=== PATIENT | female | born 1955 | race Two or more races ===

== ENCOUNTER 2022-07-22 17:55 | Inpatient (IN) | payer MEDICARE, OTHER ==
[~2022-07-22] VITALS: Ht 165.1 cm; Wt 63.5 kg
--- NOTE | 2022-07-22 18:10 | NUR ---
67 yrs famil raisa c/o elevated bp 210/89 in jonathan
--- NOTE | 2022-07-22 18:30 | NUR ---
INSERTED ANGO CATHETER G 18 BLOOD DROW AND SENT TO LAB
--- NOTE | 2022-07-22 18:51 | NUR ---
CXRAY DONE AT BED SIDE
--- NOTE | 2022-07-22 18:55 | NUR ---
UA SENT TO LAB
--- NOTE | 2022-07-22 19:00 | NUR ---
TO CT SCAN OF HEAD
[2022-07-22 19:03] LABS: BASOPHILS # (AUTO) 0.1 K/uL (0.0-0.2); BASOPHILS % (AUTO) 0.8 % (0.0-2.0); HEMATOCRIT 38 % (33-45); HEMOGLOBIN 12.5 g/dL (11.5-14.8); LYMPHOCYTES # (AUTO) 1.8 K/uL (0.8-4.8); LYMPHOCYTES % (AUTO) 27.4 % (20.0-44.0); MEAN CORPUSCULAR HGB CONC 33 g/dl (31.0-36.0); MEAN CORPUSCULAR VOLUME 83 fL (82-100); MONOCYTES # (AUTO) 0.5 K/uL (0.1-1.30); MONOCYTES % (AUTO) 6.9 % (2.0-12.0); NEUTROPHILS # (AUTO) 4.2 K/uL (1.8-8.9); NEUTROPHILS % (AUTO) 63.9 % (43.0-81.0); PLATELET COUNT (AUTO) 303 K/uL (150-450); RED BLOOD CELL COUNT(AUTO) 4.55 MIL/uL (4.0-5.2); WHITE BLOOD COUNT (AUTO) 6.5 K/uL (4.3-11.0)
[2022-07-22 19:19] LABS: CALCIUM, SERUM 9.6 mg/dL (8.5-10.1); CARBON DIOXIDE 27 mmol/L (21-32); CHLORIDE 105 mmol/L (98-107); CREATININE 1.3 mg/dL (0.6-1.3); GLUCOSE 111 mg/dL (74-106); POTASSIUM 4.1 mmol/L (3.5-5.1); SODIUM SERUM 141 mmol/L (136-145); UREA NITROGEN, BLOOD 36 mg/dL (7-18)
--- NOTE | 2022-07-22 19:20 | NUR ---
HAND OFF [facility] RENTERIA
--- NOTE | 2022-07-22 19:26 | NUR ---
Patietn out for imaging study.
[2022-07-22 19:33] LABS: MAGNESIUM 2.3 mg/dL (1.8-2.4)
[2022-07-22] MEDS ORDERED: hydrALAZINE HCL IV 20 MG VIAL IV ONE (20:00)
--- NOTE | 2022-07-22 21:41 | NUR ---
Report given to Candy RENTERIA, patient may go to room 313-2.
[2022-07-22 21:49] LABS: MAGNESIUM 2.3 mg/dL (1.8-2.4); PHOSPHORUS 4.2 mg/dL (2.5-4.9)
[2022-07-22 22:00] VITALS: BP 156/68
[2022-07-22] MEDS: ENOXAPARIN SODIUM 40 MG/0.4 ML DISP.SYRIN SQ SCH ×2 (22:00→22:54)
[2022-07-22] MEDS ORDERED: ACETAMINOPHEN 325 MG TABLET PO PRN (22:00)
[2022-07-22] MEDS ORDERED: ONDANSETRON HCL/PF 4 MG/2 ML VIAL IVP PRN (22:00)
--- NOTE | 2022-07-22 22:00 | NUR ---
HOSPICE VOLUNTEER ADMISSION NOTES ADMITTED AT 67 YEAR OLD FEMALE UNDER THE SERVICE OF DR. ELDER WITH ADMITTING DIAGNOSIS OF R/O ACS. CAME FROM ER VIA GURNEY PATIENT IS AMBULATORY WITH STEADY GAIT. TRANSFERRED TO BED SAFELY AND SECURED, SKIN ASSESSMENT DONE AND RECORDED PATIENT IS INTACT, WITH IV ACCESS AT RAC #18G PATENT AND INTACT. NO COMPLAIN OF PAIN OR DISCOMFORT AT THIS TIME. HISTORY TAKEN AND RECORDED, ALL ATTENDING PHYSICIAN INFORMED RE. ADMISSION, ALL ADMISSION ORDERS DONE AND CARRIED OUT. PATIENT ORIENTATION TO THE UNIT DONE. KEPT BED ON MODERATE HIGH BACK REST POSITION, KPET SIDE RAILS UP X 2 ALL THE TIME, KEPT CALL LIGHT WITHIN AT REACH. WILL CONTINUE TO MONITOR.
--- NOTE | 2022-07-22 22:30 | NUR ---
FITNESS/WELLNESS DIRECTOR NOTES PATIENT REFUSED ENOXAPARIN MEDICATION DESPITE OF EXPLANATION OF RISK AND BENEFITS, WILL CONTINUE TO MONITOR.
[2022-07-22] MEDS: ASPIRIN 81 MG TAB.CHEW PO SCH (22:53)
[2022-07-23] VITALS: BP 144/58
[2022-07-23 04:00] VITALS: BP 147/61
--- NOTE | 2022-07-23 06:24 | NUR ---
RN CLOSING NOTES PATIENT IS IN BED, A/O X 4 [place] SPEAKING, ON ROOM AIR SATURATING WELL NO /SOB NOTED AT THIS TIME, PATIENT IS AMBULATORY WITH ASSISTANCE, WITH IV AT RAC #18G PATENT AND INTACT ATTACHED TO TELE MONITORING DEVICE. NO PAIN OR CHEST PAIN NOTED AT THIS TIME. ALL DUE MEDICATIONS GIVEN, ALL NEEDS ATTENDED. PM CARE RENDERED. KEPT BED ON LOWER LOCKED POSITION, KEPT SIDE RAIL UP X 2 ALL THE TIME, KEPT PATIENT WARM AND COMFORTABLE. KEPT CALL LIGHT WITHIN AT REACH. WILL ENDORSED TO NEXT SHIFT FOR VELIA.
[2022-07-23 06:43] LABS: BASOPHILS % (AUTO) 0.6 % (0.0-2.0); EOSINOPHILS % (AUTO) 0.5 % (0.0-6.0); HEMATOCRIT 34 % (33-45); HEMOGLOBIN 11.3 g/dL (11.5-14.8); LYMPHOCYTES # (AUTO) 1.5 K/uL (0.8-4.8); LYMPHOCYTES % (AUTO) 21.4 % (20.0-44.0); MEAN CORPUSCULAR HGB CONC 33 g/dl (31.0-36.0); MEAN CORPUSCULAR VOLUME 82 fL (82-100); MONOCYTES # (AUTO) 0.4 K/uL (0.1-1.30); MONOCYTES % (AUTO) 5.9 % (2.0-12.0); NEUTROPHILS % (AUTO) 71.6 % (43.0-81.0); PLATELET COUNT (AUTO) 280 K/uL (150-450); RED BLOOD CELL COUNT(AUTO) 4.14 MIL/uL (4.0-5.2)
[2022-07-23 07:26] LABS: ALBUMIN 2.9 g/dL (3.4-5.0); BILIRUBIN,TOTAL 0.4 mg/dL (0.2-1.0); CALCIUM, SERUM 9.4 mg/dL (8.5-10.1); CREATININE 1.3 mg/dL (0.6-1.3); MAGNESIUM 2.3 mg/dL (1.8-2.4); POTASSIUM 4.4 mmol/L (3.5-5.1); TOTAL PROTEIN, SERUM 6.7 g/dL (6.4-8.2)
[2022-07-23 07:30] VITALS: BP 174/81
--- NOTE | 2022-07-23 07:30 | NUR ---
CRITICAL LAB CRITICAL LAB REPORTED TROPONIN 375. REPORTED TO DR. CHAYA DOOLEY. NO NEW ORDERS AT THIS TIME.
--- NOTE | 2022-07-23 07:34 | NUR ---
OPENING NOTE PATIENT RECEIVED AWAKE A/Ox4 SINHALA/NEPALI SPEAKING. ABLE TO MAKE NEED KNOWN. NO S/S OF SOB OR DISTRESS. IV ACCESS ON RAC G18-SL. PATIENT COMPLAINTS OF HEADACHE, REFUSED MEDICATION REGIME AT THIS TIME. SHE'LL EAT BREAKFAST FIRST. SKIN INTACT AND AMBULATORY. FALL AND SAFETY PRECAUTION IN MAINTAINED: BED LOCKED AND AT THE LOWEST POSITION, SRx2, CALL LIGHT WITHIN REACH.
[2022-07-23] MEDS ORDERED: hydrALAZINE HCL 50 MG TABLET PO ONE (08:30)
[2022-07-23] MEDS ORDERED: ATORVASTATIN 10 MG TABLET PO SCH (09:00)
[2022-07-23] MEDS ORDERED: LOSARTAN POTASSIUM 50 MG TABLET PO SCH (09:00)
[2022-07-23] MEDS ORDERED: METOPROLOL TARTRATE 50 MG TABLET PO SCH (09:00)
[2022-07-23] MEDS ORDERED: ENOXAPARIN SODIUM 60 MG/0.6 ML DISP.SYRIN SQ SCH (09:00)
[2022-07-23] MEDS: GLIMEPIRIDE 4 MG TABLET PO SCH ×2 (09:13→17:00)
[2022-07-23] MEDS: ASPIRIN 81 MG TAB.CHEW PO SCH (09:15)
--- NOTE | 2022-07-23 09:16 | NUR ---
MEDICATION NOTE HELD ROUTINE BP MEDICATION. DR. LARKIN HAD PLACE A ONCE TIME ORDER FOR HYDRALAZINE. PT HAD CT ORDERED, MONITORING BP PRIOR TO PROCEDURE.
[2022-07-23] MEDS ORDERED: IOHEXOL-350 100 ML VIAL IV ONE (09:19)
[2022-07-23] MEDS ORDERED: NITROGLYCERIN 0.4 MG/TAB BOTTLE ONE (09:19)
[2022-07-23] MEDS ORDERED: CT SWABBABLE VALVE TRANS SET 1 EA INFUS.SET MC ONE (09:20)
[2022-07-23] MEDS ORDERED: IV NS 0.9% 250 ML IV ONE (09:20)
[2022-07-23] MEDS ORDERED: METOPROLOL TARTRATE INJ 5 MG/5 ML AMPUL ONE ×3 (09:20→09:54)
[2022-07-23] MEDS: METOPROLOL TARTRATE INJ 5 MG/5 ML AMPUL IVP PRN ×10 (09:35→10:20)
[2022-07-23] MEDS ORDERED: NITROGLYCERIN 0.4 MG/TAB BOTTLE SL ONE (10:00)
[2022-07-23] MEDS ORDERED: GLIM4TAB PO (10:05)
[2022-07-23] MEDS ORDERED: HYDR-4076 PO (10:05)
[2022-07-23] MEDS ORDERED: METO50TA16 PO (10:05)
[2022-07-23] MEDS ORDERED: ATOR40TA PO (10:05)
[2022-07-23] MEDS ORDERED: OLME40TA12 PO (10:05)
[2022-07-23] MEDS ORDERED: ASPI-1169 PO (10:05)
[2022-07-23] MEDS ORDERED: AMLO5TAB4 PO (10:05)
--- NOTE | 2022-07-23 10:21 | NUR ---
RN NOTES TOTAL OF 50MG METROPOLOL GIVEN VIA [facility] PROTOCOL. PT HEART 63 BPM AND BP OF 127/54. EMERGENCY GENERATOR MECHANIC AWARE.
[2022-07-23 11:30] VITALS: BP 151/70
--- NOTE | 2022-07-23 12:46 | NUR ---
CRITICAL LAB CRITICAL LAB REPORTED TROPONIN 456. REPORTED TO DR. CHAYA DOOLEY. NO NEW ORDERS AT THIS TIME.
[2022-07-23 15:30] VITALS: BP 158/70
--- NOTE | 2022-07-23 17:44 | NUR ---
DISCHARGE NOTE PATIENT DISCHARGE IN STABLE MEDICAL CONDITION. A/Ox4. IV ACCESS REMOVED WITH CATHETER TIP INTACT, PRESSURE DRESSING WAS APPLIED. NO S/S OF ACTIVE BLEEDING. EXTERNAL MONITOR WAS REMOVED AND RETURNED TO TELE DESK. SKIN ASSESSMENT DONE: SKIN REMAINS INTACT. ALL BELONGING CHECK AND BELONGING LIST SIGNED. HEALTH TEACHING AND DISCHARGE INSTRUCTION GIVEN AND VERBALIZED UNDERSTANDING. PATIENT LEFT UNIT AMBULATING ACCOMPANIED BY SON AND GRANTS MANAGER, WITH NO S/S OF SOB OR DISTRESS. CHARGE NURSE MADE AWARE.
== END 2022-07-23 17:51 | disposition home or self-care (01) | DRG 282 ==
LOC: ER 18:09 → TELE 21:30
PROVIDERS: ADMIT Nurse Practitioner Acute Care; ATTEND Nurse Practitioner Acute Care
DX: I16.0 Hypertensive urgency (principal); I21.A1 Myocardial infarction type 2; I10 Essential (primary) hypertension; E11.40 Type 2 diabetes mellitus with diabetic neuropathy, unspecified; I25.10 Atherosclerotic heart disease of native coronary artery without angina pectoris; J45.909 Unspecified asthma, uncomplicated; Z88.0 Allergy status to penicillin; Z95.5 Presence of coronary angioplasty implant and graft; Z79.84 Long term (current) use of oral hypoglycemic drugs
CPT/HCPCS: 36415; 70450-TC; 71045-TC; 75574; 80048-TC; 80053-TC; 80061-TC; 82962-TC; 83735-TC; 83880; 84100-TC; 84484-TC; 85025-TC; 85730-TC; 87081-TC; 93307-TC; G0378; J1650; J3490; J7050; Q9967

== ENCOUNTER 2022-10-18 07:39 | Inpatient (IN) | payer MEDICARE, OTHER ==
[~2022-10-18] VITALS: Ht 162.6 cm; Wt 63.5 kg
[~2022-10-18 07:39] MED LIST: AMLO5TAB4 PO; ASPI-1169 PO; ATOR40TA PO; GLIM4TAB PO; HYDR-4076 PO; METO50TA16 PO; OLME40TA12 PO
[2022-10-18] MEDS ORDERED: IV NS 0.9% 500 ML BAG IV ONE ×2 (08:00→09:00)
[2022-10-18 08:12] LABS: BASOPHILS % (AUTO) 0.7 % (0.0-2.0); EOSINOPHILS % (AUTO) 0.5 % (0.0-6.0); HEMATOCRIT 39 % (33-45); HEMOGLOBIN 12.7 g/dL (11.5-14.8); LYMPHOCYTES # (AUTO) 1.1 K/uL (0.8-4.8); LYMPHOCYTES % (AUTO) 20.4 % (20.0-44.0); MEAN CORPUSCULAR HEMOGLOBIN 27 PG (26.0-33.0); MEAN CORPUSCULAR HGB CONC 33 g/dl (31.0-36.0); MEAN CORPUSCULAR VOLUME 83 fL (82-100); MONOCYTES # (AUTO) 0.4 K/uL (0.1-1.30); MONOCYTES % (AUTO) 7.6 % (2.0-12.0); NEUTROPHILS # (AUTO) 3.9 K/uL (1.8-8.9); NEUTROPHILS % (AUTO) 70.8 % (43.0-81.0); PLATELET COUNT (AUTO) 278 K/uL (150-450); RED BLOOD CELL COUNT(AUTO) 4.66 MIL/uL (4.0-5.2); RED CELL DISTRIBUTION WIDTH 13.6 % (11.5-15.0); WHITE BLOOD COUNT (AUTO) 5.5 K/uL (4.3-11.0)
[2022-10-18 08:19] LABS: CALCIUM, SERUM 9.3 mg/dL (8.5-10.1); CREATININE 1.7 mg/dL (0.6-1.3); POTASSIUM 3.9 mmol/L (3.5-5.1)
[2022-10-18 08:25] LABS: ALBUMIN 3.6 g/dL (3.4-5.0); BILIRUBIN,DIRECT 0.1 mg/dL (0.0-0.2); BILIRUBIN,TOTAL 0.6 mg/dL (0.2-1.0); TOTAL PROTEIN, SERUM 7.5 g/dL (6.4-8.2)
[2022-10-18] MEDS ORDERED: MORPHINE SULFATE INJ 2 MG/ML DISP.SYRIN IV ONE (09:00)
[2022-10-18] MEDS ORDERED: ONDANSETRON HCL/PF 4 MG/2 ML VIAL IVP ONE (09:00)
[2022-10-18] MEDS ORDERED: INSULIN REGULAR, HUMAN 100 UNIT/ML 10 ML VIAL SQ ONE (09:00)
[2022-10-18] MEDS ORDERED: ONDANSETRON HCL/PF 4 MG/2 ML VIAL ONE (09:14)
[2022-10-18] MEDS ORDERED: MORPHINE SULFATE INJ 2 MG/ML DISP.SYRIN ONE (09:14)
[2022-10-18] MEDS ORDERED: INSULIN REGULAR, HUMAN 100 UNIT/ML 10 ML VIAL ONE (09:15)
[2022-10-18] MEDS ORDERED: ASPI-1169 PO (09:21)
[2022-10-18] MEDS ORDERED: NIFE90TA61 PO (09:21)
[2022-10-18] MEDS ORDERED: LOSA100T31 PO (09:21)
[2022-10-18] MEDS ORDERED: GLIM4TAB37 PO (09:21)
[2022-10-18] MEDS ORDERED: LEVOFLOXACIN 750 MG /D5W 150ML PIGGYBACK IV ONE (09:30)
[2022-10-18] MEDS ORDERED: LEVOFLOXACIN 750 MG /D5W 150ML 150 ML IV ONE (09:34)
[2022-10-18 10:42] LABS: APPEARANCE,URINE CLEAR (CLEAR); BILIRUBIN,URINE NEGATIVE (NEGATIVE); BLOOD, URINE 1+ Ery/uL (NEGATIVE); COLOR,URINE YELLOW (YELLOW); KETONES,URINE NEGATIVE (NEGATIVE); LEUKOCYTE ESTERASE ,URINE 1+ (NEGATIVE); NITRITE, URINE NEGATIVE (NEGATIVE); PROTEIN,URINE 2+ mg/dl (NEGATIVE); UGLUCOSE 3+ mg/dL (NEGATIVE); UROBILINOGEN,URINE 0.2 EU/dL (0.2)
[2022-10-18 11:34] LABS: ADD URINE CULTURE YES; BACTERIA,URINE Few /HPF (None Seen); COARSE GRANULAR CASTS,URINE Few /LPF (None Seen); SQUAMOUS EPITHELIAL CELL,UR Rare /HPF (None Seen)
[2022-10-18] MEDS ORDERED: ACETAMINOPHEN ES 500 MG TABLET ONE (11:37)
[2022-10-18] MEDS ORDERED: ACETAMINOPHEN ES 500 MG TABLET PO ONE (12:00)
[2022-10-18 14:46] VITALS: O2SAT 98
[2022-10-18 16:00] VITALS: BP_SYST 145; BP_SYST 197; BP_DIAS 83; BP_DIAS 94; TEMP 98.1; O2SAT 97
[2022-10-18] MEDS ORDERED: ACETAMINOPHEN 325 MG TABLET PO PRN (18:00)
[2022-10-18] MEDS ORDERED: DOCUSATE SODIUM 100 MG CAPSULE PO SCH (18:00)
[2022-10-18] MEDS ORDERED: INSULIN REGULAR, HUMAN 100 UNIT/ML 3 ML VIAL SQ PRN (18:00)
[2022-10-18] MEDS ORDERED: MINERAL OIL 133 ML (PYXIS) 1 EA ENEMA RC PRN (18:00)
[2022-10-18] MEDS ORDERED: MAG HYDROX/AL HYDROX/SIMETH 30 ML UDC PO PRN (18:00)
[2022-10-18] MEDS ORDERED: DEXTROSE 50%-WATER 50 ML DISP.SYRIN IV PRN (18:00)
[2022-10-18] MEDS ORDERED: ONDANSETRON HCL/PF 4 MG/2 ML VIAL IVP PRN (18:00)
[2022-10-18] MEDS ORDERED: *INSULIN REGULAR(HUMULIN R)HUM 100 UNIT/ML VIAL SQ PRN (18:00)
[2022-10-18] MEDS ORDERED: ZOLPIDEM TARTRATE 5 MG TABLET PO PRN (18:00)
[2022-10-18] MEDS ORDERED: Z GUARD REMEDY 4 OZ OINT TP PRN (18:00)
[2022-10-18] MEDS ORDERED: IV NS 0.9% 1,000 ML IV PRN (18:00)
[2022-10-18] MEDS ORDERED: MAGNESIUM HYDROXIDE 30 ML UDC PO PRN (18:00)
[2022-10-18] MEDS ORDERED: BLOOD SUGAR DIAGNOSTIC 1 EACH STRIP VI SCH (22:00)
[2022-10-18] MEDS ORDERED: NIFEdipine XL (30MG) 30 MG TAB PO SCH (22:00)
[2022-10-19] MEDS ORDERED: LEVO500T90 PO (00:40)
[2022-10-19] MEDS ORDERED: PANTOPRAZOLE 40 MG TABLET.DR PO SCH (07:30)
[2022-10-19] MEDS ORDERED: ASPIRIN 81 MG TAB.CHEW PO SCH (09:00)
[2022-10-19] MEDS ORDERED: LEVOFLOXACIN 500 MG /D5W 100ML 500 MG in PREMIX 1 EA IV SCH (09:00)
== END 2022-10-18 23:55 | disposition left against medical advice (07) | DRG 391 ==
LOC: ER 07:42 → MED 14:13
PROVIDERS: ADMIT Student in an Organized Health Care Education/Training Program; ATTEND Nurse Practitioner Family
DX: K59.00 Constipation, unspecified (principal); N17.0 Acute kidney failure with tubular necrosis; N39.0 Urinary tract infection, site not specified; E87.1 Hypo-osmolality and hyponatremia; B96.89 Other specified bacterial agents as the cause of diseases classified elsewhere; E11.40 Type 2 diabetes mellitus with diabetic neuropathy, unspecified; E78.5 Hyperlipidemia, unspecified; I10 Essential (primary) hypertension; I25.10 Atherosclerotic heart disease of native coronary artery without angina pectoris; J45.909 Unspecified asthma, uncomplicated; Z95.5 Presence of coronary angioplasty implant and graft; Z88.0 Allergy status to penicillin; Z79.84 Long term (current) use of oral hypoglycemic drugs; Z79.82 Long term (current) use of aspirin
CPT/HCPCS: 36415; 80048-TC; 80076-TC; 81001; 82962-TC; 83690-TC; 85025-TC; 87081-TC; 87086-TC; A4216; A4223; G0378; J1815; J1956; J2270; J2405; J7030; J7040